=== PATIENT | female | born 2000 | race Caucasian/White ===

== ENCOUNTER 2018-08-24 18:07 | Emergency (ER) | payer BC ==
[2018-08-24 21:10] LABS: ABS Basophils 0 10^3/ul (0-0.2); ABS Eosinophils 0.1 10^3/ul (0-0.6); ABS Lymphocytes 2.7 10^3/ul (1.0-4.8); ABS Monocytes 0.5 10^3/ul (0-0.8); ABS Neutrophils 8.2 10^3/ul (1.5-7.7); ABS Nucleated RBC 0 10^3/ul; Eosinophil % 0.4 %; Hematocrit 38 % (33-41); Lymphocyte % 23.3 %; Mean Corpuscular HGB Conc 34 g/dL (31-36); Mean Corpuscular Hemoglobin 31 pg (27-31); Mean Corpuscular Volume 90 fL (80-97); Mean Platelet Volume 7.3 fL (7.4-10.4); Nucleated Red Blood Cells % 0; Platelet Count 393 10^3/uL (150-450); Red Blood Count 4.23 10^6 /uL (3.70-4.87); Red Cell Distribution Width 13 % (10.5-15); White Blood Count 11.4 10^3/uL (3.5-10.8)
[2018-08-24 21:22] LABS: ALT 12 U/L (7-52); AST 20 U/L (13-39); Albumin 4.6 g/dL (3.2-5.2); Albumin/Globulin Ratio 1.9 (1-3); Alkaline Phosphatase 76 U/L (34-104); Anion Gap 5 mmol/L (2-11); BUN/Creatinine Ratio 14.5 (8-20); Blood Urea Nitrogen 8 mg/dL (6-24); C Reactive Protein < 1.00 mg/L (<8.01); CO2 Carbon Dioxide 27 mmol/L (22-32); Calcium 9.4 mg/dL (8.6-10.3); Chloride 106 mmol/L (101-111); EGFR African American 170.5 (>60); EGFR Non-African American 140.9 (>60); Globulin 2.4 g/dL (2-4); Glucose 94 mg/dL (70-100); Potassium 4.1 mmol/L (3.5-5.0); Sodium 138 mmol/L (135-145)
[2018-08-24 21:27] LABS: HCG Pregnancy < 0.60 mIU/mL
[2018-08-24 23:18] LABS: Urine Appearance Clear; Urine Bilirubin Negative (Negative); Urine Blood Negative (Negative); Urine Color Yellow; Urine Glucose Negative (Negative); Urine Ketones Negative (Negative); Urine Nitrite Negative (Negative); Urine Protein Negative (Negative); Urine Specific Gravity 1.011 (1.010-1.030); Urine Urobilinogen Negative (Negative)
--- NOTE | 2018-08-24 23:32 | ED ---
GI/ HPI - HPI Summary HPI Summary: 18-year-old female presents with lower abdominal pain today. She states that the pain resolved after she had a bowel movement. She had this pain around [place] and resolved on its own after a couple days. States occasionally gets sharp crampy pain in her anus when she had this pain in April. Denies any blood in her stool. No nausea vomiting. No fevers. No change in appetite. No urinary symptoms. no abnormal vaginal discharge. No previous belly surgeries. - History of Current Complaint Chief Complaint: EDAbdPain Time Seen by Provider: 08/24/18 22:40 Stated Complaint: ABD PAIN PER PT Pain Intensity: 2 - Allergy/Home Medications Allergies/Adverse Reactions: Allergies Allergy/AdvReac Type Severity Reaction Status Date / Time shellfish derived Allergy Hives/Diff. Verified 08/24/18 18:24 Breathing/I tching Home Medications: Home Medications Ibuprofen TAB* [Advil TAB*] 200 - 400 mg PO Q6H PRN 08/24/18 [History Confirmed 08/24/18] PMH/Surg Hx/FS Hx/Imm Hx Endocrine/Hematology History: Denies: Hx Anticoagulant Therapy Cardiovascular History: Denies: Hx Myocardial Infarction Infectious Disease History: No Infectious Disease History: Denies: Traveled Outside the [place] in Last 30 Days - Family History Known Family History: Positive: Non-Contributory - Social History Alcohol Use: None Substance Use Type: Reports: None Smoking Status (MU): Never Smoked Tobacco Review of Systems Negative: Fever Negative: Chest Pain Negative: Shortness Of Breath Positive: Abdominal Pain. Negative: Vomiting, Diarrhea, Nausea All Other Systems Reviewed And Are Negative: Yes Physical Exam Triage Information Reviewed: Yes Vital Signs On Initial Exam: Initial Vitals Temp Pulse Resp BP Pulse Ox 99.5 F 87 16 123/76 100 08/24/18 18:21 08/24/18 18:21 08/24/18 18:21 08/24/18 18:21 08/24/18 18:21 Vital Signs Reviewed: Yes Appearance: Positive: Well-Appearing Skin: Positive: Warm, Dry Head/Face: Positive: Normal Head/Face Inspection Eyes: Positive: Normal, Conjunctiva Clear ENT: Positive: Pharynx normal Respiratory/Lung Sounds: Positive: Clear to Auscultation, Breath Sounds Present Cardiovascular: Positive: Normal, RRR Abdomen Description: Positive: Nontender, Soft, Other: - neg obturator. Negative: McBur[place]'s Point Tenderness Bowel Sounds: Positive: Present Musculoskeletal: Positive: Normal Neurological: Positive: Normal Psychiatric: Positive: Normal Diagnostics - Vital Signs Vital Signs Temp Pulse Resp BP Pulse Ox 08/24/18 23:01 83 100 08/24/18 22:59 83 117/80 100 08/24/18 20:32 100.2 F 80 18 119/73 100 08/24/18 18:21 99.5 F 87 16 123/76 100 - Laboratory Lab Results: Lab Results 08/24/18 08/24/18 08/24/18 Range/Units 20:55 20:55 20:56 WBC 11.4 H (3.5-10.8) 10^3/uL RBC 4.23 (3.70-4.87) 10^6 /uL Hgb 13.0 (12.0-16.0) g/dL Hct 38 (33-41) % MCV 90 (80-97) fL MCH 31 (27-31) pg MCHC 34 (31-36) g/dL RDW 13 (10.5-15) % Plt Count 393 (150-450) 10^3/uL MPV 7.3 L (7.4-10.4) fL Neut % (Auto) 71.4 % Lymph % (Auto) 23.3 % [place] % (Auto) 4.5 % Eos % (Auto) 0.4 % Baso % (Auto) 0.4 % Absolute Neuts (auto) 8.2 H (1.5-7.7) 10^3/ul Absolute Lymphs (auto) 2.7 (1.0-4.8) 10^3/ul Absolute Monos (auto) 0.5 (0-0.8) 10^3/ul Absolute Eos (auto) 0.1 (0-0.6) 10^3/ul Absolute Basos (auto) 0 (0-0.2) 10^3/ul Absolute Nucleated RBC 0 10^3/ul Nucleated RBC % 0 Sodium 138 (135-145) mmol/L Potassium 4.1 (3.5-5.0) mmol/L Chloride 106 (101-111) mmol/L Carbon Dioxide 27 (22-32) mmol/L Anion Gap 5 (2-11) mmol/L BUN 8 (6-24) mg/dL Creatinine 0.55 (0.51-0.95) mg/dL Est GFR ( Amer) 170.5 (>60) Est GFR (Non-Af Amer) 140.9 (>60) BUN/Creatinine Ratio 14.5 (8-20) Glucose 94 (70-100) mg/dL Lactic Acid 0.6 (0.5-2.0) mmol/L Calcium 9.4 (8.6-10.3) mg/dL Total Bilirubin 0.50 (0.2-1.0) mg/dL AST 20 (13-39) U/L ALT 12 (7-52) U/L Alkaline Phosphatase 76 (34-104) U/L C-Reactive Protein < 1.00 (<8.01) mg/L Total Protein 7.0 (6.4-8.9) g/dL Albumin 4.6 (3.2-5.2) g/dL Globulin 2.4 (2-4) g/dL Albumin/Globulin Ratio 1.9 (1-3) Lipase 24 (11.0-82.0) U/L Beta HCG, Quant < 0.60 mIU/mL Urine Color Urine Appearance Urine pH (5-9) Ur Specific [place]vin (1.010-1.030) Urine Protein (Negative) Urine Ketones (Negative) Urine Blood (Negative) Urine Nitrate (Negative) Urine Bilirubin (Negative) Urine Urobilinogen (Negative) Ur Leukocyte Esterase (Negative) Urine Glucose (Negative) 08/24/18 Range/Units 23:00 WBC (3.5-10.8) 10^3/uL RBC (3.70-4.87) 10^6 /uL Hgb (12.0-16.0) g/dL Hct (33-41) % MCV (80-97) fL MCH (27-31) pg MCHC (31-36) g/dL RDW (10.5-15) % Plt Count (150-450) 10^3/uL MPV (7.4-10.4) fL Neut % (Auto) % Lymph % (Auto) % [place] % (Auto) % Eos % (Auto) % Baso % (Auto) % Absolute Neuts (auto) (1.5-7.7) 10^3/ul Absolute Lymphs (auto) (1.0-4.8) 10^3/ul Absolute Monos (auto) (0-0.8) 10^3/ul Absolute Eos (auto) (0-0.6) 10^3/ul Absolute Basos (auto) (0-0.2) 10^3/ul Absolute Nucleated RBC 10^3/ul Nucleated RBC % Sodium (135-145) mmol/L Potassium (3.5-5.0) mmol/L Chloride (101-111) mmol/L Carbon Dioxide (22-32) mmol/L Anion Gap (2-11) mmol/L BUN (6-24) mg/dL Creatinine (0.51-0.95) mg/dL Est GFR ( Amer) (>60) Est GFR (Non-Af Amer) (>60) BUN/Creatinine Ratio (8-20) Glucose (70-100) mg/dL Lactic Acid (0.5-2.0) mmol/L Calcium (8.6-10.3) mg/dL Total Bilirubin (0.2-1.0) mg/dL AST (13-39) U/L ALT (7-52) U/L Alkaline Phosphatase (34-104) U/L C-Reactive Protein (<8.01) mg/L Total Protein (6.4-8.9) g/dL Albumin (3.2-5.2) g/dL Globulin (2-4) g/dL Albumin/Globulin Ratio (1-3) Lipase (11.0-82.0) U/L Beta HCG, Quant mIU/mL Urine Color Yellow Urine Appearance Clear Urine pH 7.0 (5-9) Ur Specific [place]vin 1.011 (1.010-1.030) Urine Protein Negative (Negative) Urine Ketones Negative (Negative) Urine Blood Negative (Negative) Urine Nitrate Negative (Negative) Urine Bilirubin Negative (Negative) Urine Urobilinogen Negative (Negative) Ur Leukocyte Esterase Negative (Negative) Urine Glucose Negative (Negative) Result Diagrams: 08/24/18 20:56 08/24/18 20:55 Lab Statement: Any lab studies that have been ordered have been reviewed, and results considered in the medical decision making process. - Radiology abd Radiology Interpretation Completed By: ED Physician Summary of Radiographic Findings: diffuse stool Re-Evaluation - Re-Evaluation First Eval Re-Evaluation Time: 23:34 Comment: still no pain GIGU Course/Dx - Course Course Of Treatment: 18-year-old female presents with lower abdominal pain today. She states that the pain resolved after she had a bowel movement. She had this pain around gi and resolved on its own after a couple days. States occasionally gets sharp crampy pain in her anus when she had this pain in April. Denies any blood in her stool. No nausea vomiting. No fevers. No change in appetite. No urinary symptoms. no abnormal vaginal discharge. No previous belly surgeries. On exam nontender abdomen. white blood cell count was slightly elevated. CRP normal. x-ray shows diffuse stool. On re- eval still nontender abdomen. Discussed likely constipation causing pain. Told to take MiraLAX. Patient understands increase the plan. - Diagnoses Provider Diagnoses: Abdominal pain Discharge - Sign-Out/Discharge Documenting (check all that apply): Patient Departure Patient Received Moderate/Deep Sedation with Procedure: No - Discharge Plan Condition: Good Disposition: HOME Prescriptions: Polyethylene Glycol 3350* [Miralax*] 17 gm PO DAILY #20 packet Patient Education Materials: Constipation (ED) Referrals: No Primary Care Phys,NOPCP [Primary Care Provider] - Additional Instructions: take miralax packet in 8 ounce of liquid daily until normal bowel movement increase fiber intake Take Tylenol every 6 hours as needed for pain Return to ED if develop any new or worsening symptoms - Billing Disposition and Condition Condition: GOOD Disposition: Home
[2018-08-25 00:06] VITALS: BP 103/69
== END 2018-08-25 00:05 | disposition home or self-care (01) ==
LOC: ED 18:07
DX: R10.30 Lower abdominal pain, unspecified (principal)
CPT/HCPCS: 36415; 74018; 80053; 81003; 83605; 83690; 84702; 85025; 86140; 99282